=== PATIENT | female | born 1990 | race American Indian/Alaskan Native ===

== ENCOUNTER 2017-06-16 11:35 | Emergency (ER) | payer OTHER, MEDICAID ==
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
[2017-06-16] MEDS ORDERED: MOTRIN PO ONE (15:41)
[2017-06-16 16:15] VITALS: BP 108/75
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
--- NOTE | 2017-06-16 18:00 | XRay Report ---
FINAL REPORT PROCEDURE: XR SPINE LUMBOSACRAL 2-3V TECHNIQUE: Lumbar spine radiographs, including AP, lateral, and lumbosacral spot views. CPT 08621 HISTORY: lower back pain COMPARISON: No prior studies are available for comparison. FINDINGS: Vertebral body heights and alignment are maintained. Disc spaces are preserved. No scoliosis. IMPRESSION: No acute fracture or subluxation is seen.
== END 2017-06-16 18:20 | disposition home or self-care (01) ==
LOC: ED 11:35
DX: S39.012A Strain of muscle, fascia and tendon of lower back, initial encounter (principal); V49.49XA Driver injured in collision with other motor vehicles in traffic accident, initial encounter; Y93.89 Activity, other specified; Y99.9 Unspecified external cause status; Y92.410 Unspecified street and highway as the place of occurrence of the external cause
CPT/HCPCS: 72040; 72100; 81025